=== PATIENT | male | born 1965 | race Caucasian/White ===

== ENCOUNTER → 2023-05-16 07:45 | Outpatient (CLI) | payer OTHER, SELFPAY ==
--- NOTE | ~2023-05-16 | MR_ITS ---
MRI of the lumbar spine Clinical History: Radiculopathy Technique: Axial T2-weighted images, and sagittal T1-weighted, T2-weighted, and T2 fat-sat images wer e acquired. Findings: There is no fracture or subluxation of lumbar spine. Vertebral bodies maintain normal heigh t and alignment. There is reactive marrow signal changes about the L5-S1 disc space due to underlying degenerative disc disease. At L1-L2 and L2-L3, there is no disc bulge or herniation. No spinal canal stenosis or neural foramina l narrowing at these levels. There are mild facet joint degenerative changes. At L3-L4, there is minimal disc bulge with moderate facet arthropathy. No spinal canal stenosis. Ther e is mild to moderate right neural foraminal narrowing. Left neural foramen preserved. At L4-L5, there is left paracentral disc herniation, which compresses the left side of the thecal sac , and contributes to left lateral recess stenosis. There is mild bilateral neural foraminal narrowing . No fco central canal stenosis. At L5-S1, there is moderate to advanced degenerative disc narrowing. There is diffuse disc bulge and moderate facet arthropathy. No central canal stenosis. There is severe bilateral neural foraminal ashlyn rowing. Paravertebral soft tissues are unremarkable. Impression: Left paracentral disc herniation L4-L5, which compresses left-sided thecal sac and contribute to left lateral recess stenosis. Advanced degenerative spondylosis at L5-S1, with severe bilateral neural foraminal narrowing. Reviewed, dictated and finalized at [facility]. K CARRIER Impression: Left paracentral disc herniation L4-L5, which compresses left-sided thecal sac and contribute to left lateral recess stenosis. Advanced degenerative spondylosis at L5-S1, with severe bilateral neural forami nal narrowing.
== END ==
PROVIDERS: PCP Nurse Practitioner Family; Visit Provider Nurse Practitioner Family
DX: M51.26 Other intervertebral disc displacement, lumbar region (principal); M47.817 Spondylosis without myelopathy or radiculopathy, lumbosacral region
CPT/HCPCS: 72148

== ENCOUNTER 2023-08-02 08:39 | Emergency (ER) | payer OTHER, BC, SELFPAY ==
--- NOTE | ~2023-08-02 | XR_ITS ---
XR finger 3rd LT min 2V 08/02/2023 09:29 Indication: Left third finger pain and swelling Procedure: 4 views left third finger Comparison: No prior studies for comparison. Findings: There is a comminuted mildly displaced tuft fracture third distal phalanx. No other fractur e. Mild soft tissue swelling. No foreign bodies. Impression: 1: Comminuted mildly displaced tuft fracture left third distal phalanx. Reviewed, dictated and finalized at location B. [employer] Impression: 1: Comminuted mildly displaced tuft fracture left third distal phalanx.
[2023-08-02 08:47] VITALS: BP 153/95; PULSE 78; RESP 16; TEMP 36.2; O2SAT 100
--- NOTE | 2023-08-02 09:56 | ED.UPPEXIN ---
HPI - Extremity Injury (Upper) General Chief Complaint: Extremity Injury, Upper Stated Complaint: INJURED L MIDDLE FINGER Time Seen by Provider: 08/02/23 09:27 Source: patient and RN notes reviewed Mode of arrival: ambulatory Limitations: no limitations History of Present Illness HPI narrative: Patient presents today complaining of an injury to the left 3rd finger. Patient lifted a storm drain manhole cover yesterday, when it fell on his finger. Currently rates pain 4/10. Reports some mild numbness. He is not up-to-date on his tetanus vaccine. He is not taking any [id number] medication for symptoms prior to arrival. Related Data Allergies Allergy/AdvReac Type Severity Reaction Status Date / Time augmentin Allergy Mild rash Uncoded 08/02/23 10:00 Review of Systems Review of Systems: CONSTITUTIONAL: Denies body aches, fever, chills, or sweats. EYES: Denies visual changes, redness, or discharge. ENT: Denies rhinorrhea, congestion, sore throat, or otalgia. CARDIOVASCULAR: Denies chest pain, palpitations, or edema. RESPIRATORY: Denies cough or dyspnea. GASTROINTESTINAL: Denies abdominal pain, nausea, vomiting, or diarrhea. GENITOURINARY: Denies dysuria or hematuria. SKIN: Denies rash, itching, or wounds. MUSCULOSKELETAL: + left 3rd finger injury NEUROLOGIC: Denies headache, numbness, tingling, or weakness. PSYCH: Denies depression or anxiety. PMFSH Comments At time of signature, I have reviewed and agree with nursing past medical, surgical, social and family history unless otherwise noted. Please see nursing chart for further information. There is no relevant family history pertinent to the presenting complaint Exam Narrative: GENERAL: Well-appearing, well-nourished, and in no acute distress. HEAD: Normocephalic, atraumatic. EYES: EOMI. No redness or drainage. Conjunctivae normal. ENT: Mucous membranes pink and moist. NECK: Normal AROM. CHEST: No respiratory distress. EXTREMITIES: Left 3rd finger: Mild edema with ecchymosis to the distal phalanx. Most of the fingernail has been from the nail bed, but the proximal portion is still attached. Distal sensation intact. Capillary refill normal. SKIN: Warm, dry, no rash. Capillary refill normal. Normal skin turgor. NEURO: No focal deficits. Alert and oriented x3. Gait steady. PSYCH: Normal affect. No signs of depression or anxiety. Course Course Level of Care: Express Care Visit Vital Signs Vital signs: Vital Signs Temperature 97.2 F L 08/02/23 08:47 Pulse Rate 78 08/02/23 08:47 Respiratory Rate 16 08/02/23 08:47 Blood Pressure 153/95 H 08/02/23 08:47 Pulse Oximetry 100 08/02/23 08:47 Temperature 97.2 F L 08/02/23 08:47 Pulse Rate 78 08/02/23 08:47 Respiratory Rate 16 08/02/23 08:47 Blood Pressure 153/95 H 08/02/23 08:47 Pulse Oximetry 100 08/02/23 08:47 Oxygen Delivery Room Air 08/02/23 08:52 Reviewed Procedures Orthopedic Splinting/Casting Injury #1: Splinting/Casting Date: 08/02/23 Splinting/Casting Time: 10:04 Side: left Splint: prefabricated Pre-Formed: metal foam finger splint Pre-Procedure Neuro Vascular Exam: normal Post-Procedure Neuro Vascular Exam: normal Additional Comments: Placed by RN MDM - Extremity Injury (Upper) MDM Narrative Medical decision making narrative: Patient's x-ray shows comminuted tuft fracture of the distal phalanx. He has been placed in a splint. He will also be placed on keflex to prevent infection. Patient has been instructed to follow-up with orthopedics/hand surgery for further evaluation and treatment. Differential Diagnosis Differential diagnosis: Likely other (Contusion, fracture, subungual hematoma) Imaging Data Radiologist's impression: ITS Impressions Finger X-Ray 08/02/23 09:30 Impression: 1: Comminuted mildly displaced tuft fracture left third distal phalanx.
[2023-08-02] MEDS: TETANUS,DIPHTHERIA,AC PERTUSSIS ADULT (0.5 ML) BOOSTRIX IM (10:02)
== END 2023-08-02 10:09 | disposition home or self-care (01) ==
PROVIDERS: Emergency Provider Nurse Practitioner; PCP Internal Medicine
DX: S62.633A Displaced fracture of distal phalanx of left middle finger, initial encounter for closed fracture (principal); W20.8XXA Other cause of strike by thrown, projected or falling object, initial encounter; Z23 Encounter for immunization
CPT/HCPCS: 29130; 73140; 90471; 90715; 99214; G0463